=== PATIENT | male | born 1990 | race African-American/Black ===

== ENCOUNTER 2017-10-05 13:08 | Emergency (ER) | payer MEDICAID ==
[~2017-10-05] VITALS: Ht 193 cm; Wt 90.7 kg
[2017-10-05] MEDS ORDERED: Sodium Chloride 500ML 500 ML IV ONE (13:34)
[2017-10-05 13:55] VITALS: BP 131/71
[2017-10-05 14:10] LABS: BASOPHILS % (AUTO) 0.7 % (0.0-2.0); EOSINOPHILS % (AUTO) 1.6 % (0.0-3.0); LYMPHOCYTES % (AUTO) 29.4 % (20.0-45.0); MEAN CORPUSCULAR HGB CONC 33.1 G/DL (32.0-36.0); MEAN CORPUSCULAR VOLUME 88 FL (80-99); MEAN PLATELET VOLUME 8.5 FL (6.5-10.1); MONOCYTES % (AUTO) 10.2 % (1.0-10.0); NEUTROPHILS % (AUTO) 58.1 % (45.0-75.0); PLATELET COUNT 251 K/UL (150-450); RED BLOOD COUNT 5.11 M/UL (4.70-6.10); WHITE BLOOD COUNT 6.1 K/UL (4.8-10.8)
[2017-10-05 14:23] LABS: ANION GAP 6 mmol/L (5-15); CALCIUM 9.3 MG/DL (8.5-10.1); CARBON DIOXIDE 30 MMOL/L (21-32); CHLORIDE 103 MMOL/L (98-107); CREATININE 1.4 MG/DL (0.55-1.30); GLOMERULAR FILTRATION RATE > 60 mL/min (>60); POTASSIUM 4.4 MMOL/L (3.5-5.1); SODIUM 139 MMOL/L (136-145)
[2017-10-05 14:28] LABS: ALANINE AMINOTRANSFERASE 27 U/L (12-78); ASPARTATE AMINO TRANSFERASE 21 U/L (15-37); LIPASE 91 U/L (73-393); TOTAL PROTEIN 8.1 G/DL (6.4-8.2)
[2017-10-05 14:52] VITALS: BP 128/71
[2017-10-05 15:02] VITALS: BP 128/71
--- NOTE | 2017-10-06 15:26 | Emergency Room Report ---
History of Present Illness General Chief Complaint: Abdominal Pain Source: Patient Present Illness HPI 27-year-old male presents ED for evaluation. States that x1 day he's been having cramping abdominal pain with chills and bodyaches. Denies any vomiting or diarrhea. Denies any fevers. Afebrile in triage. Pain is 3/10, cramping, nonradiating. Denies sick contacts or recent travel. No other aggravating relieving factors. Denies any other associated symptoms Allergies: Coded Allergies: No Known Allergies (Unverified , 10/05/17) Patient History Past Medical History: none Past Surgical History: none Pertinent Family History: none Social History: Denies: smoking, alcohol use, drug use Immunizations: UTD Reviewed Nursing Documentation: PMH: Agreed, PSxH: Agreed Nursing Documentation-PMH Past Medical History: No Stated History Review of Systems All Other Systems: negative except mentioned in HPI Physical Exam Vital Signs Date Time Temp Pulse Resp B/P (MAP) Pulse Ox O2 Delivery O2 Flow Rate FiO2 10/05/17 13:18 98.1 82 18 121/79 97 Room Air Sp02 EP Interpretation: reviewed, normal General Appearance: no apparent distress, alert, GCS 15, non-toxic Head: normocephalic, atraumatic Eyes: bilateral eye normal inspection, bilateral eye PERRL ENT: hearing grossly normal, normal pharynx, no angioedema, normal voice Neck: full range of motion, supple/symm/no masses Respiratory: chest non-tender, lungs clear, normal breath sounds, speaking full sentences Cardiovascular #1: regular rate, rhythm, no edema Cardiovascular #2: 2+ carotid (R), 2+ carotid (L), 2+ radial (R), 2+ radial (L) , 2+ dorsalis pedis (R), 2+ dorsalis pedis (L) Gastrointestinal: normal bowel sounds, non tender, soft, non-distended, no guarding, no rebound Rectal: deferred Genitourinary: normal inspection, no CVA tenderness Musculoskeletal: back normal, gait/station normal, normal range of motion, non- tender Neurologic: alert, oriented x3, responsive, motor strength/tone normal, sensory intact, speech normal Psychiatric: judgement/insight normal, memory normal, mood/affect normal, no suicidal/homicidal ideation Reflexes: 3+ bicep (R), 3+ bicep (L), 3+ tricep (R), 3+ tricep (L), 3+ knee (R) , 3+ knee (L) Skin: normal color, no rash, warm/dry, well hydrated Lymphatic: no adenopathy Medical Decision Making Diagnostic Impression: Primary Impression: Viral syndrome Additional Impression: Weakness ER Course Hospital Course 27 yo M presents ED complaining of chills and cramping pain. No vomiting or diarrhea differential diagnosis: gastritis, dehydration, sepsis, gastroenteritis Clinical course Patient placed on stretcher. 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 After initial history and physical I ordered labs, IV fluids, Labs - no leukocytosis, Cr 1.4, LFTs normal Likely viral syndrome. Reassurance given to patient. Rest and fluids recommended I feel this is a highly complex case requiring extensive working including EKG/ Rhythm strip, Xray/CT/US, Blood/urine lab work, repeat exams while in ED, and administration of strong opiates/narcotics for pain control, admission to hospital or close patient follow up. Diagnosis - viral syndrome, weakness Stable and discharged to home. Followup with PMD. Return to ED if symptoms recur or worsen Labs Test 10/05/17 13:47 White Blood Count 6.1 K/UL (4.8-10.8) Red Blood Count 5.11 M/UL (4.70-6.10) Hemoglobin 14.8 G/DL (14.2-18.0) Hematocrit 44.9 % (42.0-52.0) Mean Corpuscular Volume 88 FL (80-99) Mean Corpuscular Hemoglobin 29.0 PG (27.0-31.0) Mean Corpuscular Hemoglobin Concent 33.1 G/DL (32.0-36.0) Red Cell Distribution Width 11.0 % (11.6-14.8) Platelet Count 251 K/UL (150-450) Mean Platelet Volume 8.5 FL (6.5-10.1) Neutrophils (%) (Auto) 58.1 % (45.0-75.0) Lymphocytes (%) (Auto) 29.4 % (20.0-45.0) Monocytes (%) (Auto) 10.2 % (1.0-10.0) Eosinophils (%) (Auto) 1.6 % (0.0-3.0) Basophils (%) (Auto) 0.7 % (0.0-2.0) Sodium Level 139 MMOL/L (136-145) Potassium Level 4.4 MMOL/L (3.5-5.1) Chloride Level 103 MMOL/L (98-107) Carbon Dioxide Level 30 MMOL/L (21-32) Anion Gap 6 mmol/L (5-15) Blood Urea Nitrogen 10 mg/dL (7-18) Creatinine 1.4 MG/DL (0.55-1.30) Estimat Glomerular Filtration Rate > 60 mL/min (>60) Glucose Level 99 MG/DL (74-106) Calcium Level 9.3 MG/DL (8.5-10.1) Total Bilirubin 0.5 MG/DL (0.2-1.0) Aspartate Amino Transf (AST/SGOT) 21 U/L (15-37) Alanine Aminotransferase (ALT/SGPT) 27 U/L (12-78) Alkaline Phosphatase 57 U/L (46-116) Total Protein 8.1 G/DL (6.4-8.2) Albumin 4.0 G/DL (3.4-5.0) Globulin 4.1 g/dL Albumin/Globulin Ratio 1.0 (1.0-2.7) Lipase 91 U/L (73-393) Last Vital Signs Date Time Temp Pulse Resp B/P (MAP) Pulse Ox O2 Delivery O2 Flow Rate FiO2 10/05/17 15:02 66 20 128/71 100 Room Air 10/05/17 13:18 98.1 Status: improved Disposition: HOME, SELF-CARE Condition: Stable Patient Instructions: Viral Respiratory Infection, [id number] ROBERT TABOR M.D. Oct 06, 2017 15:26
== END 2017-10-05 14:53 | disposition home or self-care (01) ==
LOC: EMR 13:52
DX: B34.9 Viral infection, unspecified (principal); R53.1 Weakness; R10.9 Unspecified abdominal pain
CPT/HCPCS: 36415; 80053; 83690; 85025; 96361; 96374; 96375; 99284; J2405; J7040; S0028

== ENCOUNTER 2017-12-19 20:52 | Emergency (ER) | payer MEDICAID ==
[~2017-12-19] VITALS: Ht 193 cm; Wt 95.3 kg
--- NOTE | 2017-12-19 21:09 | Emergency Room Report ---
History of Present Illness General Chief Complaint: Flu Like Symptoms Source: Patient Present Illness HPI Patient presents with complaints of sore throat cough and general bodyache Patient also reports that he has developed a mild headache denies any neck pain or photophobia Patient reports that over the past few days he had traveled to [place] Began feeling sick He also reports that he runs in the morning a lot and that the weather has been very cold Denies any vomiting or diarrhea Denies any flank pain Allergies: Coded Allergies: No Known Allergies (Unverified , 10/05/17) Patient History Past Medical History: see triage record Pertinent Family History: none Reviewed Nursing Documentation: PMH: Agreed, PSxH: Agreed Nursing Documentation-PMH Past Medical History: No Stated History Review of Systems All Other Systems: negative except mentioned in HPI Physical Exam Vital Signs Date Time Temp Pulse Resp B/P (MAP) Pulse Ox O2 Delivery O2 Flow Rate FiO2 12/19/17 20:57 101.2 91 16 135/68 97 Room Air 101.1 Sp02 EP Interpretation: reviewed, normal General Appearance: well appearing, no apparent distress Head: normocephalic, atraumatic Eyes: bilateral eye PERRL, bilateral eye EOMI ENT: hearing grossly normal, normal pharynx, TMs + canals normal, uvula midline Neck: full range of motion, supple, no meningismus, no bony tend Respiratory: lungs clear, normal breath sounds, no rhonchi, no respiratory distress, no retraction, no accessory muscle use Cardiovascular #1: normal peripheral pulses, regular rate, rhythm, no edema, no gallop, no JVD, no murmur Gastrointestinal: normal bowel sounds, non tender, soft, no mass, no organomegaly, non-distended, no guarding, no hernia, no pulsatile mass, no rebound Genitourinary: no CVA tenderness Musculoskeletal: normal inspection Neurologic: oriented x3, responsive, mechanical planner III-XII nml as tested, motor strength/ tone normal, sensory intact Psychiatric: mood/affect normal Skin: normal color, no rash, warm/dry, palpation normal Lymphatic: normal inspection, no adenopathy Medical Decision Making Diagnostic Impression: Primary Impression: Pneumonia ER Course Multiple differentials considered Patient has complex requiring blood work and imaging Chest x-ray is concerning for appearance of infiltrate left lower lobe Blood work does not reveal any obvious acute pathology Patient respirations are appropriate Hemodynamically remained stable At this time is appropriate for initial conservative outpatient trial Labs Test 12/19/17 21:55 White Blood Count 8.6 K/UL (4.8-10.8) Red Blood Count 4.44 M/UL (4.70-6.10) Hemoglobin 12.7 G/DL (14.2-18.0) Hematocrit 38.1 % (42.0-52.0) Mean Corpuscular Volume 86 FL (80-99) Mean Corpuscular Hemoglobin 28.5 PG (27.0-31.0) Mean Corpuscular Hemoglobin Concent 33.2 G/DL (32.0-36.0) Red Cell Distribution Width 11.3 % (11.6-14.8) Platelet Count 152 K/UL (150-450) Mean Platelet Volume 9.3 FL (6.5-10.1) Neutrophils (%) (Auto) 77.6 % (45.0-75.0) Lymphocytes (%) (Auto) 12.0 % (20.0-45.0) Monocytes (%) (Auto) 8.4 % (1.0-10.0) Eosinophils (%) (Auto) 1.3 % (0.0-3.0) Basophils (%) (Auto) 0.6 % (0.0-2.0) Sodium Level 136 MMOL/L (136-145) Potassium Level 3.8 MMOL/L (3.5-5.1) Chloride Level 99 MMOL/L (98-107) Carbon Dioxide Level 28 MMOL/L (21-32) Anion Gap 9 mmol/L (5-15) Blood Urea Nitrogen 8 mg/dL (7-18) Creatinine 1.2 MG/DL (0.55-1.30) Estimat Glomerular Filtration Rate > 60 mL/min (>60) Glucose Level 122 MG/DL (74-106) Calcium Level 8.9 MG/DL (8.5-10.1) Chest X-Ray Diagnostic Results Chest X-Ray Diagnostic Results : Chest X-Ray Ordered: Yes # of Views/Limited/Complete: 1 View Indication: Shortness of Breath EP Interpretation: Yes Interpretation: no consolidation, no effusion, no pneumothorax Impression: No acute disease Electronically Signed by: Alona Sanches DO Last Vital Signs Date Time Temp Pulse Resp B/P (MAP) Pulse Ox O2 Delivery O2 Flow Rate FiO2 2/25/18 20:57 101.2 91 16 135/68 97 Room Air 101.1 Status: improved Disposition: HOME, SELF-CARE Condition: Improved Scripts Guaifenesin/Dextromethorphan (Robitussin [id number] Dm) 1 Each Capsule 1 EACH PO QHS for 7 Days, CAP Prov: ALONA SANCHES D.O. 12/19/17 Ibuprofen* (MOTRIN*) 600 Mg Tablet 600 MG ORAL THREE TIMES A DAY, #30 TAB 0 Refills Prov: ALONA SANCHES D.O. 12/19/17 Levofloxacin* (LEVAQUIN*) 750 Mg Tablet 750 MG ORAL DAILY for 7 Days, TAB Prov: ALONA SANCHES D.O. 12/19/17 Additional Instructions: Patient is provided with the discharge instructions notified to follow up with primary doctor in the next 2-3 days otherwise return to the er with any worsening symptoms. Please note that this report is being documented using [employer] technology. This can lead to erroneous entry secondary to incorrect interpretation by the dictating instrument. ALONA SANCHES D.O. Dec 19, 2017 21:09
[2017-12-19] MEDS ORDERED: Ketorolac 60mg Inj IM ONE (21:15)
[2017-12-19] MEDS ORDERED: Acetaminophen 500mg (ES) tab ORAL ONE (22:00)
[2017-12-19] MEDS ORDERED: Levofloxacin 500mg tab ORAL ONE ×2 (22:00)
[2017-12-19 22:10] LABS: BASOPHILS % (AUTO) 0.6 % (0.0-2.0); EOSINOPHILS % (AUTO) 1.3 % (0.0-3.0); HEMATOCRIT 38.1 % (42.0-52.0); HEMOGLOBIN 12.7 G/DL (14.2-18.0); MEAN CORPUSCULAR VOLUME 86 FL (80-99); MONOCYTES % (AUTO) 8.4 % (1.0-10.0); NEUTROPHILS % (AUTO) 77.6 % (45.0-75.0); PLATELET COUNT 152 K/UL (150-450); RED BLOOD COUNT 4.44 M/UL (4.70-6.10); RED CELL DISTRIBUTION WIDTH 11.3 % (11.6-14.8); WHITE BLOOD COUNT 8.6 K/UL (4.8-10.8)
[2017-12-19 22:21] LABS: ANION GAP 9 mmol/L (5-15); BLOOD UREA NITROGEN 8 mg/dL (7-18); CALCIUM 8.9 MG/DL (8.5-10.1); CARBON DIOXIDE 28 MMOL/L (21-32); CHLORIDE 99 MMOL/L (98-107); CREATININE 1.2 MG/DL (0.55-1.30); POTASSIUM 3.8 MMOL/L (3.5-5.1); SODIUM 136 MMOL/L (136-145)
[2017-12-19] MEDS ORDERED: ROBITUSSIN COU1 EACH PO (23:31)
[2017-12-19] MEDS ORDERED: IBUPROFEN600 MG ORAL (23:31)
[2017-12-19] MEDS ORDERED: LEVAQUIN750 MG ORAL (23:31)
[2017-12-19 23:48] VITALS: BP 135/68
--- NOTE | 2017-12-20 11:57 | Diagnostic Imaging Report ---
Indication: Dyspnea Comparison: None A single view chest radiograph was obtained. Findings: Left basal infiltrate demonstrated obscuring the left hemidiaphragm. Heart size is normal. Bones are unremarkable. IMPRESSION: Left basilar pneumonia
== END 2017-12-20 00:19 | disposition home or self-care (01) ==
LOC: EMR 21:05
DX: J18.9 Pneumonia, unspecified organism (principal)
CPT/HCPCS: 36415; 71045; 80048; 85025; 90471; 96372; 99284

== ENCOUNTER 2017-12-21 16:47 | Inpatient (IN) | payer MEDICAID ==
[~2017-12-21] VITALS: Ht 193 cm; Wt 95.3 kg
[~2017-12-21 16:47] MED LIST: IBUPROFEN600 MG ORAL; LEVAQUIN750 MG ORAL; ROBITUSSIN COU1 EACH PO
[2017-12-21] MEDS ORDERED: Ipratropium 0.02% Inh Soln 2.5ml UD HHN ONE (17:15)
[2017-12-21] MEDS ORDERED: Albuterol ud Inhalation HHN ONE (17:15)
[2017-12-21] MEDS ORDERED: Azithromycin 500 MG in NS 275 ML IV SCH (17:15)
[2017-12-21] MEDS ORDERED: cefTRIAXone 1 GM in NS 55 ML IV SCH (17:15)
[2017-12-21] MEDS ORDERED: Azithromycin 500mg Inj IV ONE (17:36)
[2017-12-21 17:56] LABS: EOSINOPHILS % (AUTO) 2.6 % (0.0-3.0); HEMATOCRIT 41.2 % (42.0-52.0); HEMOGLOBIN 13.6 G/DL (14.2-18.0); LYMPHOCYTES % (AUTO) 19.7 % (20.0-45.0); MEAN CORPUSCULAR VOLUME 86 FL (80-99); MONOCYTES % (AUTO) 14.3 % (1.0-10.0); NEUTROPHILS % (AUTO) 62.3 % (45.0-75.0); PLATELET COUNT 250 K/UL (150-450); RED BLOOD COUNT 4.81 M/UL (4.70-6.10); RED CELL DISTRIBUTION WIDTH 10.8 % (11.6-14.8)
[2017-12-21 18:07] LABS: ANION GAP 7 mmol/L (5-15); BLOOD UREA NITROGEN 12 mg/dL (7-18); CALCIUM 9.6 MG/DL (8.5-10.1); CARBON DIOXIDE 30 MMOL/L (21-32); CHLORIDE 102 MMOL/L (98-107); CREATININE 1.2 MG/DL (0.55-1.30); POTASSIUM 4.1 MMOL/L (3.5-5.1); SODIUM 139 MMOL/L (136-145)
[2017-12-21 18:12] VITALS: BP 113/69
[2017-12-21 18:12] LABS: ALANINE AMINOTRANSFERASE 28 U/L (12-78); ALBUMIN 3.3 G/DL (3.4-5.0); ALBUMIN/GLOBULIN RATIO 0.7 (1.0-2.7); ALKALINE PHOSPHATASE 55 U/L (46-116); ASPARTATE AMINO TRANSFERASE 23 U/L (15-37); BILIRUBIN,TOTAL 0.7 MG/DL (0.2-1.0)
--- NOTE | 2017-12-21 18:28 | Emergency Room Report ---
History of Present Illness General Chief Complaint: Upper Respiratory Illness Source: Patient Present Illness HPI 27-year-old male presents ED for evaluation. Patient was seen here 2 days ago. diagnosed with pneumonia and was subsequently discharged on Levaquin. Patient states that he is feeling worse despite taking medication. Had a temperature of 104 earlier today. Afebrile in triage. Notes productive cough. Feels weak. Denies chest pain or shortness of breath. Denies sick contacts or recent travel. No other aggravating relieving factors. Denies any other associated symptoms Allergies: Coded Allergies: No Known Allergies (Unverified , 10/05/17) Patient History Past Medical History: none Past Surgical History: none Pertinent Family History: none Social History: Denies: smoking, alcohol use, drug use Immunizations: UTD Reviewed Nursing Documentation: PMH: Agreed, PSxH: Agreed Review of Systems All Other Systems: negative except mentioned in HPI Physical Exam Vital Signs Date Time Temp Pulse Resp B/P (MAP) Pulse Ox O2 Delivery O2 Flow Rate FiO2 12/21/17 16:56 99.0 92 17 113/69 96 Room Air 99.0 12/21/17 17:32 21 Sp02 EP Interpretation: reviewed, normal General Appearance: no apparent distress, alert, GCS 15, non-toxic Head: normocephalic, atraumatic Eyes: bilateral eye normal inspection, bilateral eye PERRL ENT: hearing grossly normal, normal pharynx, no angioedema, normal voice Neck: full range of motion, supple/symm/no masses Respiratory: chest non-tender, decreased breath sounds, crackles, speaking full sentences Cardiovascular #1: regular rate, rhythm, no edema Cardiovascular #2: 2+ carotid (R), 2+ carotid (L), 2+ radial (R), 2+ radial (L) , 2+ dorsalis pedis (R), 2+ dorsalis pedis (L) Gastrointestinal: normal bowel sounds, non tender, soft, non-distended, no guarding, no rebound Rectal: deferred Genitourinary: normal inspection, no CVA tenderness Musculoskeletal: back normal, gait/station normal, normal range of motion, non- tender Neurologic: alert, oriented x3, responsive, motor strength/tone normal, sensory intact, speech normal Psychiatric: judgement/insight normal, memory normal, mood/affect normal, no suicidal/homicidal ideation Reflexes: 3+ bicep (R), 3+ bicep (L), 3+ tricep (R), 3+ tricep (L), 3+ knee (R) , 3+ knee (L) Skin: normal color, no rash, warm/dry, well hydrated Lymphatic: no adenopathy Medical Decision Making Diagnostic Impression: Primary Impression: Pneumonia Qualified Codes: J18.1 - Lobar pneumonia, unspecified organism ER Course Hospital Course 27-year-old male presents ED complaining of cough, weakness, fever. Differential diagnoses include: Pneumonia, CHF exacerbation, pneumothorax, fluid overload Clinical course Patient placed on stretcher. On cardiac/vascular sonographer. After initial history and physical, I ordered nebulizer treatments. I ordered labs, IV fluids, EKG, chest x-ray, blood cultures, UA. Labs - no leukocytosis, hemoglobin/hematocrit stable, electrolytes okay, lactate okay troponins negative CXR - L lower lobe infiltrate, appears increased from prior visit Patient is not tolerating outpatient therapy and will require admission. IV antibiotics given Case discussed with Dr. Mcqueen and he agreed to the patient to his service for further care and support I feel this is a highly complex case requiring extensive working including EKG/ Rhythm strip, Xray/CT/US, Blood/urine lab work, repeat exams while in ED, and administration of strong opiates/narcotics for pain control, admission to hospital or close patient follow up. Diagnosis - pneumonia Patient admitted to floor in serious condition Labs Test 12/21/17 17:30 White Blood Count 7.0 K/UL (4.8-10.8) Red Blood Count 4.81 M/UL (4.70-6.10) Hemoglobin 13.6 G/DL (14.2-18.0) Hematocrit 41.2 % (42.0-52.0) Mean Corpuscular Volume 86 FL (80-99) Mean Corpuscular Hemoglobin 28.3 PG (27.0-31.0) Mean Corpuscular Hemoglobin Concent 33.1 G/DL (32.0-36.0) Red Cell Distribution Width 10.8 % (11.6-14.8) Platelet Count 250 K/UL (150-450) Mean Platelet Volume 8.0 FL (6.5-10.1) Neutrophils (%) (Auto) 62.3 % (45.0-75.0) Lymphocytes (%) (Auto) 19.7 % (20.0-45.0) Monocytes (%) (Auto) 14.3 % (1.0-10.0) Eosinophils (%) (Auto) 2.6 % (0.0-3.0) Basophils (%) (Auto) 1.0 % (0.0-2.0) Sodium Level 139 MMOL/L (136-145) Potassium Level 4.1 MMOL/L (3.5-5.1) Chloride Level 102 MMOL/L (98-107) Carbon Dioxide Level 30 MMOL/L (21-32) Anion Gap 7 mmol/L (5-15) Blood Urea Nitrogen 12 mg/dL (7-18) Creatinine 1.2 MG/DL (0.55-1.30) Estimat Glomerular Filtration Rate > 60 mL/min (>60) Glucose Level 102 MG/DL (74-106) Lactic Acid Level 0.50 mmol/L (0.66-2.22) Calcium Level 9.6 MG/DL (8.5-10.1) Total Bilirubin 0.7 MG/DL (0.2-1.0) Aspartate Amino Transf (AST/SGOT) 23 U/L (15-37) Alanine Aminotransferase (ALT/SGPT) 28 U/L (12-78) Alkaline Phosphatase 55 U/L (46-116) Total Protein 7.9 G/DL (6.4-8.2) Albumin 3.3 G/DL (3.4-5.0) Globulin 4.6 g/dL Albumin/Globulin Ratio 0.7 (1.0-2.7) Chest X-Ray Diagnostic Results Chest X-Ray Diagnostic Results : Chest X-Ray Ordered: Yes # of Views/Limited/Complete: 1 View Indication: Other - cough EP Interpretation: Yes Interpretation: no effusion, no pneumothorax, other - LLL infiltrate Impression: Other - pneumonia Electronically Signed by: Electronically signed by Tad Miller MD Last Vital Signs Date Time Temp Pulse Resp B/P (MAP) Pulse Ox O2 Delivery O2 Flow Rate FiO2 12/21/17 18:12 99.0 92 20 113/69 100 Room Air 21 99.0 Status: improved Disposition: ADMITTED INPATIENT Condition: Serious Referrals: [facility],REFERRING (PCP) TAD MILLER M.D. Dec 21, 2017 18:28
[2017-12-21 18:45] LABS: APPEARANCE,URINE CLEAR; BILIRUBIN, URINE NEGATIVE (NEGATIVE); GLUCOSE, URINE (UA) NEGATIVE (NEGATIVE); KETONES,URINE 1+ (NEGATIVE); LEUKOCYTE ESTERASE ,URINE 1+ (NEGATIVE); NITRITE,URINE NEGATIVE (NEGATIVE); PH,URINE 6 (4.5-8.0); PROTEIN,URINE 2+ (NEGATIVE); UROBILINOGEN,URINE 4 MG/DL (0.0-1.0)
[2017-12-21 18:46] LABS: COLOR,URINE YELLOW
[2017-12-21] MEDS ORDERED: LORazepam Inj 2mg/ml 1ml IV PRN (19:00)
[2017-12-21] MEDS ORDERED: Miralax 17gm pkt ORAL PRN (19:00)
[2017-12-21 19:13] VITALS: BP 121/68
[2017-12-21] MEDS ORDERED: Rx Monitoring Vancomycin MISC PRN (19:30)
[2017-12-21 19:41] VITALS: BP 131/73
[2017-12-21 20:45] VITALS: BP 127/70
[2017-12-21] MEDS: Albuterol/Ipratropium 3ml neb HHN PRN (20:57)
[2017-12-21] MEDS: Heparin 5000 units/ml inj SUBQ SCH (21:00)
[2017-12-21] MEDS ORDERED: Vancomycin 1.5 GM/D5W 250ML IVPB ONE (21:00)
[2017-12-21] MEDS: Cefepime HCl 2 GM in NS 110 ML IV SCH (21:27)
[2017-12-21] MEDS: Morphine Sulfate 4mg/ml Inj IVP PRN (21:28)
[2017-12-22] VITALS (7 sets, daily range): BP systolic 109–126; BP diastolic 57–75
[2017-12-22] MEDS: Promethazine/Codeine 5ml UD ORAL PRN ×4 (00:07→18:30)
[2017-12-22] MEDS: Vancomycin 1 GM in D5W 275 ML IVPB SCH ×2 (05:14→12:11)
[2017-12-22] MEDS: Morphine Sulfate 4mg/ml Inj IVP PRN ×2 (05:21→22:12)
[2017-12-22 07:34] LABS: EOSINOPHILS % (AUTO) 3.6 % (0.0-3.0); HEMATOCRIT 36.8 % (42.0-52.0); HEMOGLOBIN 12.2 G/DL (14.2-18.0); MEAN CORPUSCULAR VOLUME 87 FL (80-99); MONOCYTES % (AUTO) 13.5 % (1.0-10.0); PLATELET COUNT 224 K/UL (150-450); RED BLOOD COUNT 4.23 M/UL (4.70-6.10); RED CELL DISTRIBUTION WIDTH 11.4 % (11.6-14.8); WHITE BLOOD COUNT 5.9 K/UL (4.8-10.8)
[2017-12-22 07:40] LABS: ANION GAP 4 mmol/L (5-15); BLOOD UREA NITROGEN 9 mg/dL (7-18); CALCIUM 9.2 MG/DL (8.5-10.1); CARBON DIOXIDE 33 MMOL/L (21-32); CHLORIDE 101 MMOL/L (98-107); CREATININE 1.2 MG/DL (0.55-1.30); PHOSPHORUS 4.1 MG/DL (2.5-4.9); POTASSIUM 4.5 MMOL/L (3.5-5.1); SODIUM 138 MMOL/L (136-145)
--- NOTE | 2017-12-22 08:32 | Diagnostic Imaging Report ---
Indication: Cough Technique: One view of the chest Comparison: 12/19/2017 Findings: Interim slight improvement in previously demonstrated retrocardiac infiltrate. The remainder lungs and pleural spaces are clear. Impression: Slightly improved but persistent left basilar pneumonia, over 2 days
[2017-12-22] MEDS: Heparin 5000 units/ml inj SUBQ SCH ×2 (09:00→20:14)
[2017-12-22] MEDS: Cefepime HCl 2 GM in NS 110 ML IV SCH (09:26)
[2017-12-22] MEDS ORDERED: Flu Vaccine Quadrivalent 0.5ml IM ONE (10:00)
--- NOTE | 2017-12-22 13:01 | Consultation ---
Consult Note Consult Note id dic # [id number] CORAZON CAMPOS M.D. Dec 22, 2017 13:01
--- NOTE | 2017-12-22 15:21 | General Progress Note ---
Assessment/Plan Status: stable Assessment/Plan Covering IM for Z: 1- PNA 2- Anemia 3- Abn BS Plan: continue with current antibiotic. pending cultures Subjective Allergies: Coded Allergies: No Known Allergies (Unverified , 10/05/17) Objective Last 24 Hour Vital Signs Date Time Temp Pulse Resp B/P (MAP) Pulse Ox O2 Delivery O2 Flow Rate FiO2 12/22/17 12:00 98.6 72 18 126/72 96 Room Air 98.6 12/22/17 09:13 98.1 12/22/17 08:28 90 20 Room Air 21 12/22/17 08:20 98.1 70 19 124/75 97 Room Air 98.1 12/22/17 08:14 97.9 12/22/17 05:51 97.9 12/22/17 05:21 97.9 12/22/17 04:00 97.9 75 18 122/69 97 Room Air 97.9 12/22/17 00:00 97.6 64 17 109/69 97 Room Air 97.6 12/21/17 21:28 98.7 12/21/17 21:10 87 20 100 Room Air 21 12/21/17 20:58 77 20 98 Room Air 21 12/21/17 20:45 97.9 77 18 127/70 95 Room Air 97.9 12/21/17 19:46 98.7 81 14 131/73 98 Room Air 12/21/17 19:41 81 14 131/73 98 Room Air 12/21/17 19:13 98.7 84 19 121/68 100 Room Air 98.7 12/21/17 18:12 99.0 92 20 113/69 100 Room Air 21 99.0 12/21/17 18:12 94 20 Room Air 21 12/21/17 17:46 94 20 100 Room Air 21 12/21/17 17:32 95 20 Room Air 21 12/21/17 17:32 95 20 97 Room Air 21 12/21/17 16:56 99.0 92 17 113/69 96 Room Air 99.0 Intake and Output 12/21/17 12/22/17 19:00 07:00 Intake Total 835.0 ml Balance 835.0 ml Intake IV Total 835.0 ml # Voids 3 Laboratory Tests 12/21/17 17:30: White Blood Count 7.0, Red Blood Count 4.81, Hemoglobin 13.6L, Hematocrit 41.2L , Mean Corpuscular Volume 86, Mean Corpuscular Hemoglobin 28.3, Mean Corpuscular Hemoglobin Concent 33.1, Red Cell Distribution Width 10.8L, Platelet Count 250, Mean Platelet Volume 8.0, Neutrophils (%) (Auto) 62.3, Lymphocytes (%) (Auto) 19.7L, Monocytes (%) (Auto) 14.3H, Eosinophils (%) (Auto ) 2.6, Basophils (%) (Auto) 1.0, Sodium Level 139, Potassium Level 4.1, Chloride Level 102, Carbon Dioxide Level 30, Anion Gap 7, Blood Urea Nitrogen 12 , Creatinine 1.2, Estimat Glomerular Filtration Rate > 60, Glucose Level 102, Lactic Acid Level 0.50L, Calcium Level 9.6, Total Bilirubin 0.7, Aspartate Amino Transf (AST/SGOT) 23, Alanine Aminotransferase (ALT/SGPT) 28, Alkaline Phosphatase 55, Total Protein 7.9, Albumin 3.3L, Globulin 4.6, Albumin/Globulin Ratio 0.7L 12/21/17 18:30: Urine Color Yellow, Urine Appearance Clear, Urine pH 6, Urine Specific [place] 1.025, Urine Protein 2+H, Urine Glucose (UA) Negative, Urine Ketones 1+H, Urine Occult Blood 3+H, Urine Nitrite Negative, Urine Bilirubin Negative, Urine Urobilinogen 4H, Urine Leukocyte Esterase 1+H, Urine RBC 5-10H, Urine WBC 2-4, Urine Squamous Epithelial Cells None, Urine Bacteria Few, Urine Mucus ManyH 12/22/17 06:10: White Blood Count 5.9, Red Blood Count 4.23L, Hemoglobin 12.2L, Hematocrit 36.8L , Mean Corpuscular Volume 87, Mean Corpuscular Hemoglobin 28.8, Mean Corpuscular Hemoglobin Concent 33.0, Red Cell Distribution Width 11.4L, Platelet Count 224, Mean Platelet Volume 7.6, Neutrophils (%) (Auto) 58.0, Lymphocytes (%) (Auto) 24.0, Monocytes (%) (Auto) 13.5H, Eosinophils (%) (Auto) 3.6H, Basophils (%) (Auto) 1.0, Sodium Level 138, Potassium Level 4.5, Chloride Level 101, Carbon Dioxide Level 33H, Anion Gap 4L, Blood Urea Nitrogen 9, Creatinine 1.2, Estimat Glomerular Filtration Rate > 60, Glucose Level 120H, Calcium Level 9.2, Albumin 3.0L, Phosphorus Level 4.1 Height (Feet): 6 Height (Inches): 4.00 Weight (Pounds): 210 Homar Shipman MD Dec 22, 2017 15:21
[2017-12-22] MEDS: Albuterol/Ipratropium 3ml neb HHN PRN ×2 (17:07→23:07)
--- NOTE | 2017-12-22 22:31 | Consultation ---
DATE OF CONSULTATION: 12/22/2017 INFECTIOUS DISEASE CONSULTATION CONSULTING PHYSICIAN: Nolberto Jeffery M.D. REQUESTING PHYSICIAN: Ronen Mcqueen M.D. REASON FOR CONSULTATION: Evaluation of the patient for pneumonia and antibiotic management. HISTORY OF PRESENT ILLNESS: The patient is a 27-year-old male who was admitted to this medical center due to cough and shortness of breath. The patient was admitted with impression of pneumonia. The patient has history of asthma. According to him, negative. Infectious Diseases consultation has been requested for further evaluation of the patient and antibiotic management. PAST MEDICAL HISTORY: Asthma. MEDICATIONS: Vancomycin and cefepime. The patient received a dose of Zithromax in the emergency room. ALLERGIES: No known drug allergies. SOCIAL HISTORY: Negative for alcohol, drug abuse, or smoking. FAMILY HISTORY: Noncontributing. No family member has flu symptoms. PHYSICAL EXAMINATION: VITAL SIGNS: Temperature 98 degrees, blood pressure 126/72, pulse 86, and respiratory rate 18. T-max 101.2 degrees. HEENT: No pale conjunctivae. No icterus. NECK: No lymphadenopathy. CHEST: Clear except some crackles at the base of right lung. HEART: S1 and S2. ABDOMEN: Soft and nontender. EXTREMITIES: No cyanosis at this time. NEUROLOGIC: Awake and alert. LABORATORY AND DIAGNOSTIC DATA: White blood cells 5.9, hemoglobin 12, and platelets 224. UA unremarkable. BUN and creatinine normal. Liver function tests are unremarkable. Chest x-ray shows slight improvement of left basilar pneumonia. ASSESSMENT: The patient is a 27-year-old male with 1. Left lung pneumonia. 2. Fever. 3. Normal white blood cells. 4. Human immunodeficiency virus test about three months ago were negative (according to the patient). PLAN: 1. antibiotic to Levaquin for a total of five days. 2. Monitor CBC. 3. Monitor BMP. 4. Monitor chest x-ray. 5. Culture, blood and sputum. 6. Influenza screening test. 7. Based on the patient's clinical course and laboratories, we will do further recommendation. Thank you, Dr. Mcqueen, for allowing me to participate in the care of this patient. I will follow the patient with you during this hospitalization. Nolberto Jeffery M.D. DR: CORNELIO JOB#: [id number] CC:
[2017-12-23] MEDS: Promethazine/Codeine 5ml UD ORAL PRN ×2 (01:35→08:49)
[2017-12-23 03:42] VITALS: BP 110/70
[2017-12-23 08:00] VITALS: BP 131/76
[2017-12-23] MEDS: Heparin 5000 units/ml inj SUBQ SCH (08:48)
--- NOTE | 2017-12-23 10:45 | Infectious Diseases Prog Note ---
Assessment/Plan Assessment/Plan ASSESSMENT: The patient is a 27-year-old male with Left lung pneumonia Chest x-ray : left basilar pneumonia Fever, SP Normal WBC HIV Neg ( as per pt 3 mo ago) Influenza screening : Neg Asthma PLAN: Cont pt on Levaquin d # 2 / 5 Monitor CBC Monitor BMP. Monitor chest x-ray. Culture, blood and sputum. Subjective Allergies: Coded Allergies: No Known Allergies (Unverified , 10/05/17) Subjective afebrile Objective Vital Signs Last 24 Hour Vital Signs Date Time Temp Pulse Resp B/P (MAP) Pulse Ox O2 Delivery O2 Flow Rate FiO2 12/23/17 08:00 97.3 75 18 131/76 96 Room Air 97.3 12/23/17 03:50 Room Air 12/23/17 03:42 97.5 69 20 110/70 97 Room Air 97.5 12/23/17 00:06 Room Air 12/22/17 23:42 97.7 73 20 118/57 92 Room Air 97.7 12/22/17 23:14 67 18 98 Room Air 21 12/22/17 23:06 66 20 96 Room Air 21 12/22/17 22:42 97.5 12/22/17 22:12 97.5 12/22/17 19:50 Room Air 12/22/17 19:49 72 18 Room Air 21 12/22/17 19:31 97.5 68 20 123/70 96 Room Air 97.5 12/22/17 17:18 66 18 100 Room Air 21 12/22/17 17:07 64 20 99 Room Air 21 12/22/17 16:00 98.2 73 19 112/72 98 98.2 12/22/17 16:00 Room Air 12/22/17 12:00 98.6 72 18 126/72 96 Room Air 98.6 Height (Feet): 6 Height (Inches): 4.00 Weight (Pounds): 210 HEENT: atraumatic Respiratory/Chest: no respiratory distress Cardiovascular: no gallop/murmur Abdomen: no organomegaly Microbiology Date/Time Source Procedure Growth Status 12/21/17 17:40 Blood Blood Culture - Preliminary NO GROWTH AFTER 24 HOURS Resulted 12/21/17 17:30 Blood Blood Culture - Preliminary NO GROWTH AFTER 24 HOURS Resulted 12/22/17 22:05 Nasopharynx Influenza Types A,B Antigen (JOSE) - Final Complete 12/21/17 23:45 Sputum Gram Stain Pending Resulted 12/21/17 23:45 Sputum Sputum Culture - Preliminary NORMAL UPPER RESPIRATORY JOSE AT 24 ... Resulted Current Medications Medications (Trade) Dose Ordered Sig/Chito Route PRN Reason Start Time Stop Time Status Last Admin Dose Admin Acetaminophen (Tylenol) 650 mg Q4H PRN ORAL FEVER 12/21/17 19:00 01/20/18 18:59 12/22/17 08:14 Albuterol/ Ipratropium (Albuterol/ Ipratropium) 3 ml EVERY 4 HOURS PRN HHN Shortness of Breath 12/21/17 19:00 12/26/17 18:59 12/22/17 23:07 Dextrose (Dextrose 50%) STAT PRN IV Hypoglycemia 12/21/17 19:00 01/20/18 18:59 Heparin Sodium (Porcine) (Heparin 5000 units/ml) 5,000 units EVERY 12 HOURS SUBQ 12/21/17 21:00 01/20/18 20:59 Levofloxacin 150 ml @ 100 mls/hr Q24H IVPB 12/22/17 14:00 12/29/17 13:59 12/22/17 14:32 Lorazepam (Ativan 2mg/ml 1ml) 2 mg EVERY 2 HOURS PRN IV For Anxiety 12/21/17 19:00 12/28/17 18:59 Morphine Sulfate (Morphine Sulfate) 4 mg EVERY 4 HOURS PRN IVP Severe Pain (Pain Scale 7-10) 12/21/17 19:00 12/28/17 18:59 12/22/17 22:12 Ondansetron HCl (Zofran) 4 mg Q6H PRN IVP Nausea & Vomiting 12/21/17 19:00 01/20/18 18:59 Polyethylene Glycol (Miralax) 17 gm DAILYPRN PRN ORAL Constipation 12/21/17 19:00 01/20/18 18:59 Promethazine HCl/ Codeine (Phenergan with Codeine) 5 ml Q6HR PRN ORAL For Cough 12/21/17 23:30 01/20/18 23:29 12/23/17 08:49 Sodium Chloride 1,000 ml @ 50 mls/hr Q20H IV 12/21/17 18:57 01/20/18 18:56 12/23/17 01:35 CORAZON CAMPOS M.D. Dec 23, 2017 10:45
[2017-12-23 12:00] VITALS: BP 129/72
[2017-12-23] MEDS ORDERED: guaiFENesin ER 600mg tab ORAL SCH (12:00)
[2017-12-23] MEDS ORDERED: 1/2 NS 1000ml IV ONE ×2 (15:15→16:54)
[2017-12-23] MEDS ORDERED: Tubing IV Secondary IV ONE (15:15)
--- NOTE | 2017-12-23 15:22 | Pulmonology Progress Note ---
Assessment/Plan Problems: (1) Pneumonia Assessment/Plan improving check cultures probably dc by tomorrow Subjective ROS Limited/Unobtainable: No Constitutional: Reports: no symptoms HEENT: Repors: no symptoms Respiratory: Reports: no symptoms Allergies: Coded Allergies: No Known Allergies (Unverified , 10/05/17) Objective Last 24 Hour Vital Signs Date Time Temp Pulse Resp B/P (MAP) Pulse Ox O2 Delivery O2 Flow Rate FiO2 12/23/17 08:00 97.3 75 18 131/76 96 Room Air 97.3 12/23/17 07:19 69 16 Room Air 12/23/17 03:50 Room Air 12/23/17 03:42 97.5 69 20 110/70 97 Room Air 97.5 12/23/17 00:06 Room Air 12/22/17 23:42 97.7 73 20 118/57 92 Room Air 97.7 12/22/17 23:14 67 18 98 Room Air 21 12/22/17 23:06 66 20 96 Room Air 21 12/22/17 22:42 97.5 12/22/17 22:12 97.5 12/22/17 19:50 Room Air 12/22/17 19:49 72 18 Room Air 21 12/22/17 19:31 97.5 68 20 123/70 96 Room Air 97.5 12/22/17 17:18 66 18 100 Room Air 21 12/22/17 17:07 64 20 99 Room Air 21 12/22/17 16:00 98.2 73 19 112/72 98 98.2 12/22/17 16:00 Room Air Intake and Output 12/22/17 12/23/17 19:00 07:00 Intake Total 1225.0 ml 530 ml Output Total 1200 ml Balance 25.0 ml 530 ml Intake Oral 90 ml 120 ml IV Total 1135.0 ml 410 ml Output Urine Total 1200 ml # Voids 3 3 General Appearance: WD/WN HEENT: normocephalic, anicteric Respiratory/Chest: chest wall non-tender, normal breath sounds Cardiovascular: normal peripheral pulses, regular rhythm Abdomen: normal bowel sounds, soft, non tender Genitourinary: normal external genitalia Extremities: no cyanosis Skin: no lesions 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 Resulted Current Medications Medications (Trade) Dose Ordered Sig/Chito Route PRN Reason Start Time Stop Time Status Last Admin Dose Admin Acetaminophen (Tylenol) 650 mg Q4H PRN ORAL FEVER 12/21/17 19:00 01/20/18 18:59 12/22/17 08:14 Albuterol/ Ipratropium (Albuterol/ Ipratropium) 3 ml EVERY 4 HOURS PRN HHN Shortness of Breath 12/21/17 19:00 12/26/17 18:59 12/22/17 23:07 Dextrose (Dextrose 50%) STAT PRN IV Hypoglycemia 12/21/17 19:00 01/20/18 18:59 Guaifenesin (Mucinex ER) 600 mg TWICE A DAY ORAL 12/23/17 12:00 01/22/18 11:59 12/23/17 12:15 Heparin Sodium (Porcine) (Heparin 5000 units/ml) 5,000 units EVERY 12 HOURS SUBQ 12/21/17 21:00 01/20/18 20:59 Levofloxacin 150 ml @ 100 mls/hr Q24H IVPB 12/22/17 14:00 12/29/17 13:59 12/23/17 15:06 Lorazepam (Ativan 2mg/ml 1ml) 2 mg EVERY 2 HOURS PRN IV For Anxiety 12/21/17 19:00 12/28/17 18:59 Morphine Sulfate (Morphine Sulfate) 4 mg EVERY 4 HOURS PRN IVP Severe Pain (Pain Scale 7-10) 12/21/17 19:00 12/28/17 18:59 12/22/17 22:12 Ondansetron HCl (Zofran) 4 mg Q6H PRN IVP Nausea & Vomiting 12/21/17 19:00 01/20/18 18:59 Polyethylene Glycol (Miralax) 17 gm DAILYPRN PRN ORAL Constipation 12/21/17 19:00 01/20/18 18:59 Promethazine HCl/ Codeine (Phenergan with Codeine) 5 ml Q6HR PRN ORAL For Cough 12/21/17 23:30 01/20/18 23:29 12/23/17 08:49 Sodium Chloride 1,000 ml @ 50 mls/hr Q20H IV 12/21/17 18:57 01/20/18 18:56 12/23/17 01:35 BOB RICO Dec 23, 2017 15:22
[2017-12-23] MEDS: Morphine Sulfate 4mg/ml Inj IVP PRN (15:28)
[2017-12-23] MEDS ORDERED: LEVAQUIN750 MG ORAL (16:30)
--- NOTE | 2017-12-24 09:46 | Discharge Summary ---
Discharge Summary Hospital Course Date of Admission Dec 21, 2017 at 18:28 Date of Discharge Dec 23, 2017 at 16:55 Admitting Diagnosis Pneumonia HPI Geoffrey Jeffers is a 27 year old male who was admitted on Dec 21, 2017 at 18:28 for Pneumonia Hospital Course [id number] Discharge Discharge Disposition Patient was discharged to Home (01) Discharge Diagnoses: Debora Burt NP Dec 24, 2017 09:46
--- NOTE | 2017-12-25 01:15 | Discharge Summary 2 SIG ---
DATE OF ADMISSION: 12/21/2017 DATE OF DISCHARGE: 12/23/2017 IN HOME CAREGIVER: Nolberto Jeffery M.D. BRIEF HOSPITAL COURSE: The patient is a 27-year-old male, who was seen at emergency department two days prior was diagnosed with pneumonia and was subsequently discharged home to continue p.o. Levaquin, went back to ED feeling worse despite taking medications. He claimed to be febrile, temperature of 104 degrees and was complaining of productive cough. He had fatigue. He denied chest pain or shortness of breath. Denied any sick contacts or recent travel. On evaluation at ED, blood work did not show any leukocytosis. Hemoglobin and hematocrit were stable. Lactate was 0.5. He had a chest x-ray done that showed left lower lobe infiltrate that appeared to have increased from prior visit. Due to failed outpatient therapy, the patient was admitted for IV antibiotics for treatment of pneumonia. He was followed by Infectious Disease specialist and was continued on Levaquin. Influenza screening was negative and sputum culture showed normal upper respiratory kalyn. There was no growth on blood culture. The patient had been afebrile and was saturating well on room air. The patient was eventually discharged home to continue antibiotic treatment. FINAL DIAGNOSES: 1. Pneumonia. 2. Asthma. 3. Fever. 4. Normal white blood cells. 5. Human immunodeficiency virus negative as per the patient three months ago. 6. Negative influenza screen. DISPOSITION: The patient was discharged home. DISCHARGE MEDICATIONS: Continue with Levaquin 750 mg daily for four more days. DISCHARGE INSTRUCTIONS: Follow up with PMD in a week. Ronen Mcqueen M.D. I have been assigned to dictate discharge summary on this account and I was not involved in the patient's management. Debora Burt N.P. DR: Nataliya JOB#: [id number] CC:
--- NOTE | 2017-12-28 12:11 | History and Physical ---
History of Present Illness General Date patient seen: Dec 21, 2017 Reason for Hospitalization: Upper Respiratory Illness Present Illness HPI 27-year-old male present ed to ED for evaluation of temperature of 104 earlier today. Patient was diagnosed with pneumonia and was subsequently discharged on Levaquin. Patient states that he is feeling worse despite taking medication. c/o productive cough. Feels weak. Denies chest pain or shortness of breath. . No other aggravating relieving factors. His CXR shows LLL infiltrate. He is admitted for further management. Allergies: Coded Allergies: No Known Allergies (Unverified , 10/05/17) Medication History Scheduled Guaifenesin/Dextromethorphan (Robitussin Kbbxy-Hvbop-Mxwj Dm), 1 EACH PO QHS Ibuprofen* (Motrin*), 600 MG ORAL THREE TIMES A DAY Levofloxacin* (Levaquin*), 750 MG ORAL DAILY Levofloxacin* (Levaquin*), 750 MG ORAL DAILY, (Reported) Patient History Healthcare decision maker Resuscitation status Advanced Directive on File Review of Systems Constitutional: Reports: fever, malaise Respiratory: Reports: cough, shortness of breath All Other Systems: negative except mentioned in HPI Physical Exam General Appearance: WD/WN Lines, tubes and drains: peripheral HEENT: normocephalic, atraumatic Neck: non-tender, normal alignment Respiratory/Chest: chest wall non-tender, lungs clear Breasts: no masses Cardiovascular/Chest: normal peripheral pulses Abdomen: normal bowel sounds, non tender Genitourinary/Rectal: normal genital exam, heme negative stool Extremities: non-tender, normal inspection Skin Exam: normal pigmentation 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 THU RICOMUNIRA Dec 28, 2017 12:11
== END 2017-12-23 16:55 | disposition home or self-care (01) | DRG 139 ==
LOC: EMR 18:14 → 4W 18:28 → EDBEDREQ 18:57 → 4W 21:50
DX: J18.9 Pneumonia, unspecified organism (principal); J45.909 Unspecified asthma, uncomplicated; Z23 Encounter for immunization
CPT/HCPCS: 36415; 71045; 80053; 80069; 81003; 83605; 85025; 86710; 87040; 87070; 87205; 90630; 93970; 94640; 94664; 99285; J7620

== ENCOUNTER 2018-06-15 16:32 | Emergency (ER) | payer MEDICAID ==
[~2018-06-15] VITALS: Ht 193 cm; Wt 95.3 kg
[2018-06-15] MEDS ORDERED: Tetanus/Diptheria/Pertussis Vaccine 0.5ml Syr IM ONE (17:00)
[2018-06-15] MEDS ORDERED: Silver Nitrate Stick TOPIC ONE (17:00)
[2018-06-15 17:26] VITALS: BP 103/68
[2018-06-15 17:29] VITALS: BP 103/68
[2018-06-15] MEDS ORDERED: CEPHALEXIN500 MG ORAL (17:37)
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
== END 2018-06-15 17:53 | disposition home or self-care (01) ==
LOC: EMR 17:12
DX: S71.131A Puncture wound without foreign body, right thigh, initial encounter (principal); Z23 Encounter for immunization; W26.9XXA Contact with unspecified sharp object(s), initial encounter; Y93.55 Activity, bike riding; Y92.9 Unspecified place or not applicable
CPT/HCPCS: 12001; 90471; 90715; 99283; Z7502

== ENCOUNTER 2020-02-13 12:27 | Emergency (ER) | payer MEDICAID ==
[~2020-02-13] VITALS: Ht 193 cm; Wt 97.5 kg
[~2020-02-13 12:27] MED LIST changes: +CEPHALEXIN500 MG ORAL
[2020-02-13] MEDS ORDERED: Methocarbamol 500mg tab ORAL ONE ×2 (13:00→13:15)
[2020-02-13 13:02] VITALS: BP 118/76
--- NOTE | 2020-02-13 13:56 | Emergency Room Report ---
History of Present Illness General Chief Complaint: Pain Source: Patient Present Illness HPI 30-year-old male with no significant past medical history here complaining of posterior left-sided neck pain as well as left wrist pain after an injury that occurred 3 days ago. Patient reports that he was trying to get some large box from a shelf and score as it fell first on his left wrist and then hit his left side of neck and he landed on the floor however did not have any head injury. Denies any loss of consciousness, nausea vomiting dizziness. This happened 3 days prior to today's visit. Has full range of motion. Denies any tingling numbness. Rates the pain 5 out of 10 in both wrist and left-sided neck without radiation. No bony tenderness noted. Denies chest pain, shortness of breath, headache and dizziness at this time. Last took Advil 2 days ago. Resting comfortably with stable vital signs. Denies fever and chills, shortness of breath. Allergies: Coded Allergies: No Known Allergies (Unverified , 10/05/17) COVID-19 Screening Contact w/high risk pt: No Recent Travel to affected area: No Experienced COVID-19 symptoms?: No Patient History Past Medical History: see triage record Past Surgical History: none Pertinent Family History: none Immunizations: UTD Reviewed Nursing Documentation: PMH: Agreed; PSxH: Agreed Nursing Documentation-PMH Past Medical History: No History, Except For Review of Systems All Other Systems: negative except mentioned in HPI Physical Exam Vital Signs Date Time Temp Pulse Resp B/P (MAP) Pulse Ox O2 Delivery O2 Flow Rate FiO2 02/13/20 12:40 97.9 98 20 118/76 (90) 95 Room Air Sp02 EP Interpretation: reviewed, normal General Appearance: no apparent distress, alert, GCS 15, non-toxic Head: normocephalic, atraumatic Eyes: bilateral eye normal inspection, bilateral eye PERRL ENT: hearing grossly normal, normal pharynx, no angioedema, normal voice Neck: full range of motion, supple, thyroid normal, no meningismus, supple/symm /no masses Respiratory: chest non-tender, lungs clear, normal breath sounds, no rhonchi, no retraction, no wheezing, speaking full sentences Cardiovascular #1: regular rate, rhythm, no edema Cardiovascular #2: 2+ carotid (R), 2+ carotid (L), 2+ radial (R), 2+ radial (L) Gastrointestinal: normal bowel sounds, non tender, soft, non-distended, no guarding, no rebound Rectal: deferred Genitourinary: no CVA tenderness Musculoskeletal: back normal, digits/nails normal, no calf tenderness, no lower extremity edema, non-tender Neurologic: alert, motor strength/tone normal, oriented x3, sensory intact, responsive, speech normal Psychiatric: judgement/insight normal, memory normal, mood/affect normal, no suicidal/homicidal ideation Skin: no rash Lymphatic: no adenopathy Medical Decision Making PA Attestation All my diagnosis and treatment plans were reviewed ad discussed with my supervising physician Dr. Miller Diagnostic Impression: Primary Impression: Cervical strain Additional Impression: Wrist contusion ER Course 30-year-old male with no significant past medical history here complaining of posterior left-sided neck pain as well as left wrist pain after an injury that occurred 3 days ago. Patient reports that he was trying to get some large box from a shelf and score as it fell first on his left wrist and then hit his left side of neck and he landed on the floor however did not have any head injury. Denies any loss of consciousness, nausea vomiting dizziness. This happened 3 days prior to today's visit. Has full range of motion. Denies any tingling numbness. Rates the pain 5 out of 10 in both wrist and left-sided neck without radiation. No bony tenderness noted. Denies chest pain, shortness of breath, headache and dizziness at this time. Last took Advil 2 days ago. Resting comfortably with stable vital signs. Denies fever and chills, shortness of breath. Ddx considered but are not limited to : Wrist sprain, wrist strain, wrist fracture, cervical strain versus sprain versus contusion versus fracture Vital signs: are WNL, pt. is afebrile H&PE are most consistent with: Cervical strain, wrist contusion ORDERS: Wrist x-ray, C-spine x-ray, Robaxin, ibuprofen, lidocaine patch ED INTERVENTIONS: Lidocaine patch, ibuprofen, Robaxin DISCHARGE: At this time pt. is stable for d/c to home. Will provide printed patient care instructions, and any necessary prescriptions. Care plan and follow up instructions have been discussed with the patient prior to discharge. At this time no head CT scan needed patient is asymptomatic and head appears to be atraumatic and the injury occurred 3 days prior to visit at the ED. Follow primary doctor, if worsening symptoms return to the emergency room. Other X-Ray Diagnostic Results Other X-Ray Diagnostic Results #1: X-Ray ordered: C spine # of Views/Limited Vs Complete: 3 View Indication: Pain EP Interpretation: Yes PA Xray: Interpretation reviewed, by supervising MD, and agrees with findings. Interpretation: no dislocation, no soft tissue swelling, no fractures Impression: No acute disease Electronically Signed by: Araceli Nelson PA-C Other X-Ray Diagnostic Results #2: X-Ray ordered: left wrist # of Views/Limited Vs Complete: 3 View Indication: Pain EP Interpretation: Yes PA Xray: Interpretation reviewed, by supervising MD, and agrees with findings. Interpretation: no dislocation, no soft tissue swelling, no fractures Impression: No acute disease Electronically Signed by: Araceli Nelson PA-C Last Vital Signs Date Time Temp Pulse Resp B/P (MAP) Pulse Ox O2 Delivery O2 Flow Rate FiO2 02/13/20 13:02 97.9 20 118/76 95 Room Air 02/13/20 12:40 98 Disposition: HOME, SELF-CARE Condition: Stable Scripts Lidocaine Patch* (Lidoderm Patch*) 1 Each Adh..patch 1 PATCH TOPIC DAILY, #30 PATCH Patch(es) may remain in place for up to 12 hours in any 24-hour period. Prov: Araceli Treadwell 02/13/20 Ibuprofen* (MOTRIN*) 600 Mg Tablet 600 MG ORAL Q6H PRN for For Pain, #30 TAB 0 Refills Prov: Araceli Treadwell 02/13/20 Methocarbamol* (ROBAXIN-500*) 500 Mg Tablet 500 MG ORAL TID PRN for For Pain, #15 TAB 0 Refills Prov: Araceli Treadwell 02/13/20 Patient Instructions: Cervical Strain and Sprain With Rehab-SportsMed, Contusion, Nehy-ha-Gaif Additional Instructions: Take medication as directed, follow with primary care doctor, if worsening symptoms return to the emergency room Araceli Treadwell Feb 13, 2020 13:56
[2020-02-13] MEDS ORDERED: LIDODERM700 M1 TOPIC (13:58)
[2020-02-13] MEDS ORDERED: ROBAXIN-500MG ORAL (13:58)
[2020-02-13] MEDS ORDERED: IBUPROFEN600 M1 ORAL (13:58)
[2020-02-13 14:06] VITALS: BP 125/78
--- NOTE | 2020-02-13 15:19 | Diagnostic Imaging Report ---
Indication: Trauma, pain Technique: 3 views of the cervical spine Comparison: none Findings: Bony alignment is normal. Vertebral body heights are preserved. Disc spaces are preserved. No prevertebral soft tissue swelling. No acute fractures. No dislocations. Impression: Negative
--- NOTE | 2020-02-13 15:20 | Diagnostic Imaging Report ---
Clinical Indication:Reason For Exam: TRAUMA Technique: 3 views of the left wrist Comparison: None Findings: No acute fractures. No dislocations. The joint spaces are preserved Impression: Negative
== END 2020-02-13 14:22 | disposition home or self-care (01) ==
LOC: EMR 13:06
DX: S16.1XXA Strain of muscle, fascia and tendon at neck level, initial encounter (principal); S60.212A Contusion of left wrist, initial encounter; W20.8XXA Other cause of strike by thrown, projected or falling object, initial encounter; Y92.9 Unspecified place or not applicable
CPT/HCPCS: 72040; 73110; Z7502; 99284

== ENCOUNTER 2020-07-23 16:40 | Emergency (ER) | payer MEDICAID ==
[~2020-07-23] VITALS: Ht 193 cm; Wt 99.8 kg
[~2020-07-23 16:40] MED LIST changes: +IBUPROFEN600 M1 ORAL; +LIDODERM700 M1 TOPIC; +ROBAXIN-500MG ORAL
--- NOTE | 2020-07-23 17:02 | NUR ---
ED Nurse Note: pt taken to a room; x-ray tech at bedside.
[2020-07-23 17:11] VITALS: BP 120/73
--- NOTE | 2020-07-23 17:12 | NUR ---
ED Nurse Note: Patient ambulated to ER c/o pressure headache, coughs causing chest pain x 2 days. AAO x4, VSS at this time.
--- NOTE | 2020-07-23 19:02 | NUR ---
ED Nurse Note: Report received from JUDE MENENDEZ
--- NOTE | 2020-07-23 19:06 | Emergency Room Report ---
History of Present Illness General Chief Complaint: Upper Respiratory Illness Source: Patient Present Illness HPI Patient states that over the past couple days he has had an irritable cough. He has had some nasal congestion. He states he returned from [place] about a day ago. He is concerned about COVID-19. He denies shortness of breath or difficulty breathing. He denies fever or chills. He denies nausea or vomiting. He denies headache or neck pain. He has no other complaints. Allergies: Coded Allergies: No Known Allergies (Unverified , 10/05/17) COVID-19 Screening Contact w/high risk pt: No Recent Travel to affected area: No Experienced COVID-19 symptoms?: No COVID-19 Testing performed GARMENT TAG STRINGER: No Patient History Past Medical History: none, see triage record Social History: Denies: smoking, alcohol use, drug use Reviewed Nursing Documentation: PMH: Agreed; PSxH: Agreed Nursing Documentation-PMH Past Medical History: No Stated History Review of Systems All Other Systems: negative except mentioned in HPI Physical Exam Vital Signs Date Time Temp Pulse Resp B/P (MAP) Pulse Ox O2 Delivery O2 Flow Rate FiO2 07/23/20 16:41 98.4 98 19 120/73 (89) 98 Room Air Sp02 EP Interpretation: reviewed, normal General Appearance: no apparent distress, alert, GCS 15, non-toxic Head: normocephalic, atraumatic Eyes: bilateral eye normal inspection, bilateral eye PERRL ENT: hearing grossly normal, normal pharynx, no angioedema, normal voice, other - +post nasal drip Neck: full range of motion, supple/symm/no masses Respiratory: chest non-tender, lungs clear, normal breath sounds, no respir atory distress, no retraction, no accessory muscle use, speaking full sentences Cardiovascular #1: regular rate, rhythm, no edema Gastrointestinal: non-distended Rectal: deferred Musculoskeletal: non-tender Neurologic: alert, motor strength/tone normal, oriented x3, sensory intact, responsive, speech normal Psychiatric: judgement/insight normal, memory normal, mood/affect normal, no suicidal/homicidal ideation Skin: no rash Medical Decision Making Diagnostic Impression: Primary Impression: Upper respiratory infection Additional Impressions: Viral syndrome Allergic rhinitis ER Course This patient has a clinical presentation with upper respiratory tract infection. The evaluation was very reassuring with a normal lung exam, no respiratory distress, normal pulse oximetry. I am not concerned for pneumonia in this patient. This is most likely viral and will not need antibiotic therapy. I suspect there is an element of allergic rhinitis and seasonal allergies. I will go ahead and start treatment with Zyrtec and Flonase. The patient was instructed to follow-up closely with her primary care physician for monitoring of follow-up care. The patient's COVID-19 test was negative. The patient was educated this could be false negative and he should get a repeat test in 1 week. Regardless, the patient is well-appearing and nontoxic without evidence of respiratory distress and overall benign evaluation. No emergency medical condition was identified. This patient was evaluated in the context of the global COVID-19 pandemic, which necessitated consideration that the patient might be at risk for infection with the [id number] virus that causes COVID-19. Institutional protocols and algorithms that pertain to the evaluation of patients at risk for COVID-19 and the state of rapid change based on information released by multiple regulatory bodies including the CDC and federal and state organizations. These policies and algorithms were followed during the patient's care in the ED. Microbiology Date/Time Source Procedure Growth Status 07/23/20 18:05 Nasopharynx SARS-CoV-2 RdRp Gene Assay - Final Complete EKG Diagnostic Results Rate: normal Rhythm: NSR ST Segments: no acute changes Rhythm Strip Diag. Results EP Interpretation: yes Rate: 80's Rhythm: NSR, no PVC's, no ectopy Chest X-Ray Diagnostic Results Chest X-Ray Diagnostic Results : Chest X-Ray Ordered: Yes # of Views/Limited/Complete: 1 View Indication: Shortness of Breath EP Interpretation: Yes Interpretation: no consolidation, no effusion, no pneumothorax, no acute cardiopulmonary disease Impression: No acute disease Electronically Signed by: Paris Johnson DO Last Vital Signs Date Time Temp Pulse Resp B/P (MAP) Pulse Ox O2 Delivery O2 Flow Rate FiO2 07/23/20 17:11 98 19 Room Air 07/23/20 17:11 98.4 120/73 98 Status: improved Disposition: HOME, SELF-CARE Condition: Improved Referrals: [facility],REFERRING (PCP) Patient Instructions: Upper Respiratory Infection, Adult Paris Johnson DO Jul 23, 2020 19:06
[2020-07-23] MEDS ORDERED: ZYRTEC10 MG ORAL (19:08)
[2020-07-23] MEDS ORDERED: FLONASE ALLERG9.9 ML NS (19:08)
--- NOTE | 2020-07-23 19:13 | NUR ---
ER DISCHARGE NOTE: Patient is cleared to be discharged per ERMD, pt is aox4, on room air, with stable vital signs. pt was given dc and prescription instructions, pt was able to verbalize understanding, pt id band removed. pt is able to ambulate with steady gait. pt took all belongings.
[2020-07-23 19:14] VITALS: BP 121/75
--- NOTE | 2020-07-24 17:19 | Diagnostic Imaging Report ---
Indication: Chest pain Technique: One view of the chest Comparison: 12/21/2017 Findings: Lungs and pleural spaces are clear. The heart size is normal. Impression: Negative
--- NOTE | 2020-07-31 16:08 | Cardiology Report ---
APPROVED REPORT EKG Measurement Heart [id number] <Conclusion> Normal sinus rhythm Normal ECG
== END 2020-07-23 19:16 | disposition home or self-care (01) ==
LOC: EMR 17:25
DX: J06.9 Acute upper respiratory infection, unspecified (principal); B34.9 Viral infection, unspecified; J30.9 Allergic rhinitis, unspecified; R07.9 Chest pain, unspecified
CPT/HCPCS: 71045; 93005; U0002; Z7502; 99283